=== PATIENT | male | born 1990 | race Two or more races ===

== ENCOUNTER 2023-12-15 06:54 | Inpatient (IN) | payer SELFPAY ==
[~2023-12-15] VITALS: Ht 175.3 cm; Wt 82.0 kg
[2023-12-15 06:57] VITALS: O2SAT 96
[2023-12-15 07:54] LABS: BASOPHILS % 0.4 % (0.0-2.0); EOSINOPHILS % 1.3 % (0.0-5.0); HEMATOCRIT. 46.4 % (42.0-52.0); HEMOGLOBIN. 15.6 g/dL (14.0-18.0); LYMPHOCYTES % 13.3 % (20.0-50.0); MEAN CORPUSCULAR HEMOGLOBIN 30.3 pg (28.0-32.0); MEAN CORPUSCULAR HGB CONC 33.7 g/dL (31.0-37.0); MEAN PLATELET VOLUME 8.1 fl (7.4-10.4); MONOCYTES % 4.8 % (2.0-8.0); NEUTROPHILS % 80.2 % (40.0-76.0); PLATELET 351 x1000/uL (130-400); RED BLOOD CELL COUNT 5.16 mill/uL (4.7-6.1); RED CELL DISTRIBUTION WIDTH 12.6 % (11.6-14.6); WHITE BLOOD COUNT 14.7 x1000/uL (4.5-11.0)
[2023-12-15 08:37] LABS: ALANINE AMINOTRANSFERASE 19 IU/L (10-49); ALBUMIN 2.9 g/dL (3.2-4.8); ASPARTATE AMINOTRANSFERASE 21 IU/L (<34); BILIRUBIN TOTAL 0.3 mg/dL (0.1-1.0); CALCIUM 7.5 mg/dL (8.7-10.4); CARBON DIOXIDE 24 mEq/L (21-32); CHLORIDE 106 mEq/L (98-107); CREATININE 0.8 mg/dL (0.6-1.3); ETHANOL BLOOD < 10 mg/dL (<10); GLUCOSE 153 mg/dL (70-105); PROTEIN TOTAL 5.2 g/dL (6.0-8.3); SODIUM 137 mEq/L (136-145); UREA NITROGEN BLOOD 12 mg/dL (9-23)
[2023-12-15 09:04] LABS: TROPONIN I HIGH SENSITIVITY < 4 ng/L (3.0-53)
[2023-12-15 09:58] LABS: ACETAMINOPHEN < 2 ug/mL (10-30)
[2023-12-15] MEDS ORDERED: MAGNESIUM/ALUMINUM HYDROXIDE/SIMETHICONE 30ML UDC PO PRN (10:00)
[2023-12-15] MEDS ORDERED: ONDANSETRON HCL 4MG/2ML INJ IV PRN (10:00)
[2023-12-15] MEDS ORDERED: DOCUSATE SODIUM 100MG CAPSULE PO PRN (10:00)
[2023-12-15] MEDS ORDERED: CLONIDINE 0.1MG TABLET PO PRN (10:00)
[2023-12-15] MEDS ORDERED: ACETAMINOPHEN 325MG TABLET PO PRN ×2 (10:00)
[2023-12-15] MEDS ORDERED: GUAIFENESIN 200MG/10ML SUGAR FREE UDC PO PRN (10:00)
[2023-12-15] MEDS ORDERED: IPRATROPIUM/ALBUTEROL 0.5-3(2.5)MG/3ML NEB HHN PRN (10:00)
[2023-12-15 10:10] LABS: TROPONIN I HIGH SENSITIVITY < 4 ng/L (3.0-53)
[2023-12-15] MEDS: DEXT 5%/0.45% NACL 1000ML 1,000 ML IV SCH (10:30)
[2023-12-15 11:19] LABS: *AMPHETAMINES SCREEN URINE NEGATIVE (NEGATIVE); *BARBITURATES SCREEN URINE NEGATIVE (NEGATIVE); *BENZODIAZEPINES SCREEN URINE NEGATIVE (NEGATIVE); *COCAINE SCREEN URINE NEGATIVE (NEGATIVE); CANNABINOID URINE SCREEN NEGATIVE (NEGATIVE); ECSTASY MDMA SCREEN URINE NEGATIVE (NEGATIVE); METHADONE URINE SCREEN Neg (NEGATIVE); OPIATES URINE SCREEN NEGATIVE (NEGATIVE); PHENCYCLIDINE URINE SCREEN NEGATIVE (NEGATIVE)
[2023-12-15] MEDS: FOLIC ACID/VITAMIN B COMP W-C TABLET PO SCH (12:00)
[2023-12-15] MEDS: THIAMINE HCL 100MG TABLET PO SCH (12:00)
[2023-12-15 13:50] VITALS: BP 121/78; PULSE 67; RESP 15; TEMP 98.5
[2023-12-15] MEDS ORDERED: IOHEXOL-350 100 ML BOTTLE ONE (14:56)
== END 2023-12-15 14:00 | disposition home or self-care (01) | DRG 45 ==
LOC: ER 06:54 → 5WST 09:31 → EDBEDREQ 09:35 → EDBEDREQTM 09:35 → 5WST 14:13
PROVIDERS: ADMIT Preventive Medicine Clinical Informatics; ATTEND Preventive Medicine Clinical Informatics
DX: I63.9 Cerebral infarction, unspecified (principal); G92.8 Other toxic encephalopathy; Z68.26 Body mass index [BMI] 26.0-26.9, adult; E46 Unspecified protein-calorie malnutrition; R29.712 NIHSS score 12
CPT/HCPCS: 36415; 70496; 70498; 80053; 80305; 80307; 80320; 80329; 84484; 85025; 93005; 99285; Q9967; G0480